=== PATIENT | female | born 1985 | race Caucasian/White ===

== ENCOUNTER 2017-05-18 17:20 | Emergency (ER) | payer OTHER ==
[2017-05-18 18:19] VITALS: BP 122/59
--- NOTE | 2017-05-18 19:16 | UC ---
Kiana Morgan Emily, scribed for Gertrude De Leon MD on 05/18/17 at 1910 . Skin Complaint HPI - HPI Summary HPI Summary: This patient is a 31 year old F presenting to urgent care with a chief complaint of a rash on the corners of her mouth that began 2 weeks ago. The rash progressed to the creases of her nose and under lower eyelids 4 days ago. Symptoms alleviated by nothing. Pt states feels dry and mild itching. Patient denies sore throat, ear pain, sinus pressure, and rash elsewhere on body. Pt denies any new product use on face. Pt reports using an OTC athletes foot medication of the face. Pt has also applied OTC cream without improvement. No other lesions No h/o similar. No new products, foods, or medications. Patients medications reviewed this visit. - History of Current Complaint Chief Complaint: UCRash Time Seen by Provider: 05/18/17 18:58 Stated Complaint: RASH Hx Obtained From: Patient Hx Last Menstrual Period: 07/27/15 Onset/Duration: Sudden Onset, Lasting Weeks, Still Present Character: Pruritus Alleviating Factor(s): Nothing - Allergy/Home Medications Allergies/Adverse Reactions: Allergies Allergy/AdvReac Type Severity Reaction Status Date / Time No Known Allergies Allergy Verified 08/10/15 09:26 Home Medications: Home Medications B-Complex Vitamins [Vitamin B Complex] 1 tab PO 05/18/17 [History] Cholecalciferol [Vitamin D] 1,000 unit PO 05/18/17 [History] Review of Systems Skin: Rash - On face ENT: Other - Negative sore throat, ear pain, and sinus pressure All Other Systems Reviewed And Are Negative: Yes PMH/Surg Hx/FS Hx/Imm Hx Previously Healthy: Yes Cardiovascular History: Other Other Cardiovascular History: Negative hypertension Respiratory History: Other Other Respiratory History: Negative COPD - Surgical History Surgical History: Yes Surgery Procedure, Year, and Place: wisdom tooth extraction - 2007 - Family History Known Family History: Positive: None - Social History Occupation: Employed Full-time Lives: Alone Alcohol Use: None Substance Use Type: None Smoking Status (MU): Never Smoked Tobacco - Immunization History Most Recent Influenza Vaccination: 2014 Physical Exam Triage Information Reviewed: Yes Appearance: Well-Appearing, No Pain Distress, Well-Nourished Vital Signs: Initial Vital Signs Temp 98.0 F 05/18/17 18:14 Pulse 43 05/18/17 18:14 Resp 18 05/18/17 18:14 BP 122/59 05/18/17 18:14 Pulse Ox 100 05/18/17 18:14 Vital Signs Reviewed: Yes Eye Exam: Normal ENT Exam: Normal ENT: Positive: Normal ENT inspection, Hearing grossly normal, Pharynx normal, Pharyngeal erythema, TMs normal Dental Exam: Normal Neck exam: Normal Neck: Positive: Supple, Nontender Respiratory Exam: Normal Respiratory: Positive: Chest non-tender, Lungs clear, Normal breath sounds, No respiratory distress, No accessory muscle use Cardiovascular Exam: Normal Cardiovascular: Positive: RRR, No Murmur, Pulses Normal, Brisk Capillary Refill Abdominal Exam: Normal Abdomen Description: Positive: Nontender, No Organomegaly, Soft Musculoskeletal Exam: Normal Neurological Exam: Normal Neurological: Positive: Alert Psychological Exam: Normal Psychological: Positive: Normal Response To Family Skin: Positive: Other - Pt with mild eryethematous base with dry flaky skin at corners of mouth, prox edge nasolabial fold and left under eylid. No vesicles non drainage. non tender no warmth Course/Dx - Course Course Of Treatment: Pt with dry patch on erythematous patches on face - corners mouth, nasolabial fold and under left eyelid no warmth, no concerns for cellulitis, yeast or infecitous process. appears dry dermatitis. will give Rx triamcinolone cream, derm referral vasoline at night. pt comfortable and in agreement with plan - Diagnoses Provider Diagnoses: dermatitis Discharge - Discharge Plan Condition: Stable Disposition: HOME Prescriptions: Triamcinolone 0.5% CREAM(NF) [Triamcinolone 0.5% CREAM*] 1 applic TOPICAL BID # 1 tube Patient Education Materials: Dermatitis (ED) Referrals: Glenroy Le MD [Medical Doctor] - Margarita Garibay MD [Primary Care Provider] - Additional Instructions: The doctor that evaluated you today does not think your rash in caused by an infection - bacterial or yeast - Humidify the room where you sleep - apply a thick layer of vasoline to your dry skin patches at bedtime - apply steroid cream 2 times a day as prescribed - avoid drying soaps and make-up until you are seen by the documentation clerk - call the documentation clerk to schedule a follow-up appointment this week The documentation as recorded by the Kiana andujar Emily accurately reflects the service I personally performed and the decisions made by me, Gertrude De Leon MD.
== END 2017-05-18 19:33 | disposition home or self-care (01) ==
LOC: UCEAST 17:20
DX: L30.9 Dermatitis, unspecified (principal)
CPT/HCPCS: 99212; G0463